=== PATIENT | male | born 1940 | race Caucasian/White ===

== ENCOUNTER 2018-04-03 09:33 | Emergency (ER) | payer MEDICARE, SELFPAY ==
[2018-04-03 09:44] VITALS: BP 109/69; PULSE 64; RESP 16; TEMP 36.5; O2SAT 99
--- NOTE | 2018-04-03 10:01 | ED_ITS ---
HPI - Male Genitourinary General Chief complaint: Urogenital-Male Stated complaint: PAIN IN ABDOMEN Time Seen by Provider: 04/03/18 09:45 Source: patient Mode of arrival: ambulatory Limitations: no limitations History of Present Illness HPI Narrative: Patient is a 77-year-old male who presents with right lower quadrant pain. He says it has been off and on since about 2:00 a.m. this morning. No migration of pain no flank pain or testicle pain. On he does have a history of kidney stones and an appendectomy. He says this does feel similar to previous kidney stones. He did take an Aleve prior to arrival which seems to have helped. Related Data Home Medications Medication Instructions Recorded Confirmed latanoprost [Xalatan] 1 drp OPHTH HS #0 04/19/11 TIMOLOL 0.25% OPHTH - 1 drp OPHTH BID #0 11/15/11 (#TIMOPTIC 0.25% 10 ML) Previous Rx's Medication Instructions Recorded hydrocodone-acetaminophen [[place]] 1 tab PO Q4HP PRN #10 tab 04/29/17 polyethylene glycol 3350 [Miralax] 17 gm PO QDAYP PRN #14 gm 04/29/17 tamsulosin [Flomax] 0.4 mg PO QDAY #10 cap 04/29/17 Allergies Allergy/AdvReac Type Severity Reaction Status Date / Time No Known Allergies Allergy Uncoded 11/16/17 13:08 Review of Systems Review of Systems GENERAL: Denies chills, fatigue, malaise, fever, sweats, travel HEENT: Denies sinus pain, ear pain, sore throat, difficulty swallowing, neck pain RESPIRATORY: Denies dyspnea, cough, wheezing, hemoptysis, sputum. CARDIOVASCULAR: Denies chest pain, palpitations, orthopnea, edema GASTROINTESTINAL: See HPI : Denies dysuria, frequency, incontinence, hematuria, urinary retention, flank pain. MUSCULOSKELETAL: Denies weakness, joint pain, or bony pain SKIN: No rash, no erythema, no pruritus NEUROLOGIC: Denies weakness, dizziness, headache, numbness, change in speech, confusion PSYCHIATRIC: No concerning psychosocial issues. 12 point review of systems is negative except for those stated above and HPI All systems reviewed & are unremarkable except as noted in HPI and below Exam Initial Vital Signs Initial Vital Signs: Vital Signs Temperature 97.7 F 04/03/18 09:44 Pulse Rate 64 04/03/18 09:44 Respiratory Rate 16 04/03/18 09:44 Blood Pressure 109/69 04/03/18 09:44 Pulse Oximetry 99 04/03/18 09:44 GENERAL: Alert elderly male no acute distress HEENT: Head atraumatic,EOMI, pupils reactive CARDIOVASCULAR: Regular rate and rhythm without murmurs, rubs or gallops. RESPIRATORY: Breath sounds equal bilaterally, no wheezes rales or rhonchi. ABDOMEN: Soft, no right lower quadrant tenderness, negative Rizo sign : No CVA tenderness EXTREMITIES: Normal range of motion, no clubbing or edema. Neurovascularly intact NEUROLOGICAL: Alert and oriented x4.Normal gait and speech. Cranial nerves II through XII grossly intact. [Good [id number], good [id number], strength equal bilaterally, no dysarthria or aphasia, sensation in tact to soft touch bilaterally, no visual changes, no facial droop] SKIN: Warm, dry, no laceration, no petechiae, no rashes or lesions. Course Orders Ordered: ED Orders 04/03/18 10:11 CT kidney ureter bladder (KUB) Stat Vital Signs - 8 hr 04/03/18 11:15 Pulse Rate 55 L Respiratory Rate 18 Blood Pressure [Right Arm] 109/66 Pulse Oximetry 96 MDM - Male Genitourinary Lab Data Attestation: I reviewed the patient's lab results. Result diagrams: 04/03/18 09:55 04/03/18 09:55 Lab Results 04/03/18 04/03/18 Range/Units 09:55 09:55 WBC 9.1 (4.5-11.0) X10^3/uL RBC 4.53 (4.5-5.9) X10^6/uL Hgb 14.4 (13.5-17.5) g/dL Hct 42.2 (41-53) % MCV 93.1 (80-100) fL MCH 31.8 (26-34) PG MCHC 34.1 (30-36) % RDW 14.1 (11.6-14.8) % Plt Count 125 L (150-400) X10^3/uL Neut % (Auto) 79.1 H (50-75) % Lymph % (Auto) 11.2 L (25-40) % [place] % (Auto) 6.7 (3-14) % Eos % (Auto) 2.3 (2-4) % Baso % (Auto) 0.7 (0-2) % Neut # (Auto) 7200 H (4327-5344) /uL Sodium 147 H (137-145) mmol/L Potassium 4.0 (3.4-5.1) mmol/L Chloride 109 H (98-107) mmol/L Carbon Dioxide 28 (22-32) mmol/L BUN 17 (9-20) mg/dL Creatinine 0.70 (0.66-1.25) mg/dL Estimated GFR > 60.0 (>60) mL/min BUN/Creatinine Ratio 24.3 H (6-22) Glucose 123 H (80-110) mg/dL Calcium 9.0 (8.4-10.2) mg/dL Total Bilirubin 1.0 (0.2-1.3) mg/dL AST 34 (17-59) IU/L ALT 27 (21-72) IU/L Alkaline Phosphatase 55 (38-126) U/L Total Protein 6.1 L (6.3-8.2) g/dL Albumin 3.7 (3.5-5.0) g/dL Globulin 2.4 (1.7-4.1) g/dL Albumin/Globulin Ratio 1.5 (1.0-2.8) Lipase 22 L (23-300) U/L Imaging Data CT scan - abdomen: Radiologist's impression: PROCEDURE: CT KIDNEY URETER BLADDER (KUB) INDICATIONS: right lower quad pain hx of kidney stone TECHNIQUE: Noncontrast 5 mm thick sections acquired from the diaphragms to the symphysis. 5 mm thick coronal and sagittal reformats were then performed. For radiation dose reduction, the following was used: automated exposure control, adjustment of mA and/or kV according to patient size. COMPARISON: [facility], CT, ABDOMEN/PELVIS WITH CONTRAST, 04/29/2017, 14: 36. [facility], CT, KIDNEY/ URETER/BLADDER, 01/10/2009, 19:30. FINDINGS: Image quality: Excellent. Lung bases: Scattered scarring/atelectasis is present. No definite focal consolidation. Heart is enlarged. 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 Bilateral nephrolithiasis is seen measuring up to 8mm on the left and 1 mm on the right. There are numerous bilateral parapelvic cysts. No definite ureteral dilatation is identified. The distal right ureter is not well-visualized, however there appears to be a new 3 mm nonobstructive distal right ureteral calculus on image 67 series 2. A previously visualized 5 mm left proximal ureter calculus is no longer seen. The bladder appears grossly unremarkable. No bladder calculi seen. No hydronephrosis or perinephric fat stranding. No calcified bladder stones. There are numerous right-sided pelvic phleboliths which appear grossly unchanged . Prostate enlarged. Other solid organs: Liver is normal in size. Presumably attenuation right hepatic cyst measuring 3 cm. Gallbladder surgically absent. Pancreas is normal in contours. Spleen is normal in size. No adrenal nodules. Peritoneum and bowel: Unenhanced bowel loops demonstrate normal wall thickness and caliber. No free fluid or air. Colonic diverticula are incidentally noted. The rectum is filled with stool and otherwise unremarkable. Appendix not well-seen although may be surgically absent. Nodes and vessels: No retroperitoneal or mesenteric adenopathy by size criteria. Aorta and inferior vena cava are normal in caliber. Abdominal wall: No ventral hernias. Pelvis: No free pelvic fluid. No inguinal hernias or adenopathy. Bones: No suspicious bony lesions. Diffuse osteopenia and posterior spinal instrumentation in the lumbar spine. Unchanged appearance of L3 compression fracture. IMPRESSION: Nonobstructing 3 mm distal right ureteral calculus, just above the ureterovesical junction, which has developed since prior study. Interval resolution of the obstructing 5 mm left proximal ureteral calculus since the prior study Multiple nonobstructive bilateral renal calculi as before. Moderate hiatal hernia. Large amount of stool seen within the rectal vault. Please correlate clinically for constipation/fecal impaction. Incidental colonic diverticulosis. Enlarged prostate. Additional chronic incidental findings as above. Dictated by: Javad Hinojosa M.D. on 04/03/2018 at 10:25 Approved by: Javad Hinojosa M.D. on 04/03/2018 at 10:37 Discharge Plan Departure Patient Disposition: Home Clinical Impression: Kidney stone on right side Discharge Date/Time: 04/03/18 11:28 Interventions: ED Discharge Assessment Last Done: 04/03/18 11:27 Instructions: DI for Kidney Stones Activity Restrictions/Additional Instructions: *You have been diagnosed with kidney stone *What to do: Increase fluid intake, recommend urology evaluation if you have not already had one *Continue to take medications as directed -Flomax once daily-as prescribed Aleve 1-2 tablets every 6-8 hours if needed for pain -Tylenol 500 mg every 4-6 hours if needed for pain *Follow up with your primary care provider in 2-3 days *Return to ER if you should have increasing pain, fever or any new, worsening or concerning symptoms Prescriptions: No Action latanoprost [Xalatan] 0.005 % drops 1 drp OPHTH HS Qty: 0 RF: 0 TIMOLOL 0.25% OPHTH - (#TIMOPTIC 0.25% 10 ML) 1 drp OPHTH BID Qty: 0 RF: 0 polyethylene glycol 3350 [Miralax] 17 GM powder in packet 17 gm PO QDAYP PRNQty: 14 RF: 0 hydrocodone-acetaminophen [[place]] 5 MG/325 MG tablet 1 tab PO Q4HP PRNQty: 10 RF: 0 tamsulosin [Flomax] 0.4 MG capsule,extended release 24hr 0.4 mg PO QDAY Qty: 10 RF: 0 Referrals: Bradley Crowe MD [Primary Care Provider] -
--- NOTE | 2018-04-03 10:11 | DI.CT.S_ITS ---
PROCEDURE: CT KIDNEY URETER BLADDER (KUB) INDICATIONS: right lower quad pain hx of kidney stone TECHNIQUE: Noncontrast 5 mm thick sections acquired from the diaphragms to the symphysis. 5 mm thick coronal and sagittal reformats were then performed. For radiation dose reduction, the following was used: automated exposure control, adjustment of mA and/or kV according to patient size. COMPARISON: [facility], CT, ABDOMEN/PELVIS WITH CONTRAST, 04/29/2017, 14:36. [facility], CT, KIDNEY/ URETER/BLADDER, 01/10/2009, 19:30. FINDINGS: Image quality: Excellent. Lung bases: Scattered scarring/atelectasis is present. No definite focal consolidation. Heart is enlarged. 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 Bilateral nephrolithiasis is seen measuring up to 8mm on the left and 1 mm on the right. There are numerous bilateral parapelvic cysts. No definite ureteral dilatation is identified. The distal right ureter is not well-visualized, however there appears to be a new 3 mm nonobstructive distal right ureteral calculus on image 67 series 2. A previously visualized 5 mm left proximal ureter calculus is no longer seen. The bladder appears grossly unremarkable. No bladder calculi seen. No hydronephrosis or perinephric fat stranding. No calcified bladder stones. There are numerous right-sided pelvic phleboliths which appear grossly unchanged . Prostate enlarged. Other solid organs: Liver is normal in size. Presumably attenuation right hepatic cyst measuring 3 cm. Gallbladder surgically absent. Pancreas is normal in contours. Spleen is normal in size. No adrenal nodules. Peritoneum and bowel: Unenhanced bowel loops demonstrate normal wall thickness and caliber. No free fluid or air. Colonic diverticula are incidentally noted. The rectum is filled with stool and otherwise unremarkable. Appendix not well-seen although may be surgically absent. Nodes and vessels: No retroperitoneal or mesenteric adenopathy by size criteria. Aorta and inferior vena cava are normal in caliber. Abdominal wall: No ventral hernias. Pelvis: No free pelvic fluid. No inguinal hernias or adenopathy. Bones: No suspicious bony lesions. Diffuse osteopenia and posterior spinal instrumentation in the lumbar spine. Unchanged appearance of L3 compression fracture. IMPRESSION: Nonobstructing 3 mm distal right ureteral calculus, just above the ureterovesical junction, which has developed since prior study. Interval resolution of the obstructing 5 mm left proximal ureteral calculus since the prior study Multiple nonobstructive bilateral renal calculi as before. Moderate hiatal hernia. Large amount of stool seen within the rectal vault. Please correlate clinically for constipation/fecal impaction. Incidental colonic diverticulosis. Enlarged prostate. Additional chronic incidental findings as above. Dictated by: Javad Hinojosa M.D. on 04/03/2018 at 10:25 Approved by: Javad Hinojosa M.D. on 04/03/2018 at 10:37
[2018-04-03 10:13] LABS: Add Manual Diff / Slide Review NO; Basophils Percent Auto 0.7 % (0-2); Eosinophils Percent Auto 2.3 % (2-4); Hematocrit 42.2 % (41-53); Hemoglobin 14.4 g/dL (13.5-17.5); Lymphocytes Percent Auto 11.2 % (25-40); Mean Corpuscular HGB Conc 34.1 % (30-36); Mean Corpuscular Hemoglobin 31.8 PG (26-34); Mean Corpuscular Volume 93.1 fL (80-100); Monocytes Percent Auto 6.7 % (3-14); Neutrophils Absolute Auto 7200 /uL (3000-5900); Neutrophils Percent Auto 79.1 % (50-75); Platelet Count 125 X10^3/uL (150-400); Red Blood Cell Count 4.53 X10^6/uL (4.5-5.9); Red Cell Distribution Width 14.1 % (11.6-14.8); White Blood Cell Count 9.1 X10^3/uL (4.5-11.0)
--- NOTE | 2018-04-03 10:14 | PC.NURSE ---
Pt w/ h/o left kidney stones here for right lower quadrant / mid abd pain. Denies nausea / vomiting. States that pain is worse when going over bumps in car or walking. Denies recent trauma. Last bm yesterday, normal for patient. Refused offer of pain medication at this time.
[2018-04-03 11:03] LABS: Alanine Aminotransferase 27 IU/L (21-72); Albumin 3.7 g/dL (3.5-5.0); Albumin Globulin Ratio 1.5 (1.0-2.8); Alkaline Phosphatase 55 U/L (38-126); Aspartate Aminotransferase 34 IU/L (17-59); BUN Creatinine Ratio 24.3 (6-22); Blood Urea Nitrogen 17 mg/dL (9-20); Carbon Dioxide 28 mmol/L (22-32); Chloride 109 mmol/L (98-107); Estimated Glomerular Filt Rate > 60.0 mL/min (>60); Globulin 2.4 g/dL (1.7-4.1); Glucose 123 mg/dL (80-110); HEMOLYSIS 32 (0-50); Lipase 22 U/L (23-300); Sodium 147 mmol/L (137-145); Total Protein 6.1 g/dL (6.3-8.2)
[2018-04-03 11:15] VITALS: BP 109/66; PULSE 55; RESP 18; O2SAT 96
== END 2018-04-03 11:28 | disposition home or self-care (01) ==
PROVIDERS: Emergency Provider Emergency Medicine; Family Provider Family Medicine; PCP Family Medicine
DX: N20.0 Calculus of kidney (principal)
CPT/HCPCS: 74176; 80053; 81003; 83690; 85025; 99283; 99284

== ENCOUNTER 2018-12-09 14:36 | Emergency (ER) | payer MEDICARE, SELFPAY ==
[2018-12-09 14:50] VITALS: BP 146/75; PULSE 70; RESP 16; TEMP 36.6; O2SAT 99
--- NOTE | 2018-12-09 15:03 | ED.DIZZY ---
HPI - Dizziness General Chief Complaint: Dizziness Stated Complaint: states nausea, dizzy, difficulty walking, weak x1d Time Seen by Provider: 12/09/18 14:48 Source: patient and family Mode of arrival: ambulatory Limitations: no limitations History of Present Illness HPI Narrative: Patient is an 78-year-old male who presents with vague complaints. He has dementia and is an extremely poor historian. His states that she was in a different room making breakfast she heard him on unclear if he fell or not no sign of trauma. He may have been extremely dizzy but is overall feeling better now. He does not have any chest pain difficult to discern if he had chest pain previously. He talks about a procedure to his right eye were a needle was injected his states that that never happened. MD complaint: dizziness Related Data Home Medications Medication Instructions Recorded Confirmed latanoprost [Xalatan] 1 drp OPHTH HS #0 04/19/11 04/08/18 TIMOLOL 0.25% OPHTH - 1 drp OPHTH BID #0 11/15/11 04/08/18 (#TIMOPTIC 0.25% 10 ML) brimonidine 0.15 % eye drops EYE-BOTH ml 04/08/18 04/08/18 lisinopril 10 mg tablet 10 mg PO DAILY 04/08/18 04/08/18 Previous Rx's Medication Instructions Recorded polyethylene glycol 3350 [Miralax] 17 gm PO QDAYP PRN #14 gm 04/29/17 tamsulosin [Flomax] 0.4 mg PO QDAY #10 cap 04/29/17 Allergies Allergy/AdvReac Type Severity Reaction Status Date / Time No Known Drug Allergies Allergy Verified 12/09/18 14:50 Review of Systems Review of Systems ROS Unobtainable: All systems reviewed & are unremarkable except as noted in HPI and below Constitutional Denies chills, Denies fever(s), Denies lethargy and Denies weakness Eyes Denies change in vision, Denies eye discharge, Denies irritation and Denies loss of vision ENT Ears, Nose, Mouth, and Throat: Denies change in voice, Denies neck pain and Denies sore throat Cardiovascular Denies chest pain, Denies irregular heart rhythm, Denies lightheadedness, Denies palpitations, Denies dyspnea, Denies dyspnea on exertion and Denies orthopnea Respiratory Denies cough, Denies dyspnea, Denies dyspnea on exertion and Denies wheezing Gastrointestinal Gastrointestinal: Denies abdominal pain, Denies change in bowel habits, Denies diarrhea, Denies nausea and Denies vomiting Genitourinary Denies hematuria, Denies flank pain, Denies urinary incontinence and Denies urinary urgency Musculoskeletal Denies neck pain Integumentary/Breasts Denies pruritus, Denies erythema, Denies rash and Denies wounds Neurologic Denies loss of vision and Denies weakness Endocrine Denies palpitations Allergic/Immunologic Denies wheezing [facility] Medical History Dementia (Acute) Social History Smoking Status: Never smoker alcohol intake: never Social History Smoking Status: Never smoker alcohol intake: never Exam Initial Vital Signs Initial Vital Signs: Vital Signs Temperature 97.9 F 12/09/18 14:50 Pulse Rate 70 12/09/18 14:50 Respiratory Rate 16 12/09/18 14:50 Blood Pressure 146/75 H 12/09/18 14:50 Pulse Oximetry 99 12/09/18 14:50 GENERAL: Pleasantly confused elderly male no acute distress HEENT: Head atraumatic,EOMI, pupils reactive, face symmetric, CARDIOVASCULAR: Regular rate and rhythm without murmurs, rubs or gallops. RESPIRATORY: Breath sounds equal bilaterally, no wheezes rales or rhonchi. ABDOMEN: Soft, nontender. Normoactive bowel sounds all 4 quadrants. No guarding or rebound. EXTREMITIES: Normal range of motion, no clubbing or edema. Neurovascularly intact NEUROLOGICAL: Alert and oriented x4.Normal gait and speech. Cranial nerves II through XII grossly intact. he is able to follow commands radiology transcriptionist strength is equal bilaterally. Good [id number]. Does not quite understand heel to [place]. No aphasia and no dysarthria SKIN: Warm, dry, no laceration, no petechiae, no rashes or lesions. Course Orders Ordered: ED Orders 12/09/18 14:50 EKG-12 Lead Stat 12/09/18 15:04 CT head/brain wo con Stat 12/09/18 15:10 Complete Blood Count AUTO DIFF Stat Comprehensive Metabolic Panel Stat Troponin & CK Cardiac Panel Stat 12/09/18 15:16 XR pelvis 1-2V Stat 12/09/18 15:37 XR chest 2V Stat Discontinued Medications Aspirin (Aspirin Chew) 324 mg PO NOW ONE Stop: 12/09/18 17:06 Last Admin: 12/09/18 17:06 Dose: 324 mg Sodium Chloride (Normal Saline 0.9%) 1,000 mls @ 1,000 mls/hr IV CONT OKSANA Last Infusion: 12/09/18 17:08 Dose: 0 mls/hr Admin: 12/09/18 16:07 Dose: 1,000 mls/hr Vital Signs - 8 hr 12/09/18 14:50 12/09/18 16:02 12/09/18 16:30 Temperature 97.9 F Pulse Rate 70 56 L 56 L Respiratory Rate 16 17 15 Blood Pressure 146/75 H Blood Pressure [Left Arm] 138/67 135/71 Pulse Oximetry 99 96 99 MDM - Dizziness Lab Data Attestation: I reviewed the patient's lab results. Result diagrams: 12/09/18 15:10 12/09/18 15:10 Lab Results 12/09/18 12/09/18 Range/Units 15:10 15:10 WBC 6.8 (4.5-11.0) X10^3/uL RBC 4.52 (4.5-5.9) X10^6/uL Hgb 14.6 (13.5-17.5) g/dL Hct 43.6 (41-53) % MCV 96.6 (80-100) fL MCH 32.3 (26-34) PG MCHC 33.4 (30-36) % RDW 13.9 (11.6-14.8) % Plt Count 134 L (150-400) X10^3/uL Neut % (Auto) 61.9 (50-75) % Lymph % (Auto) 26.0 (25-40) % [place] % (Auto) 9.0 (3-14) % Eos % (Auto) 2.5 (2-4) % Baso % (Auto) 0.6 (0-2) % Neut # (Auto) 4200 (3026-2718) /uL Lymph # (Auto) 1800 (9917-7286) /uL [place] # (Auto) 600 (0-900) /uL Eos # (Auto) 200 (0-450) /uL Baso # (Auto) 0 (0-100) /uL Sodium 142 (137-145) mmol/L Potassium 3.8 (3.4-5.1) mmol/L Chloride 106 (98-107) mmol/L Carbon Dioxide 27 (22-32) mmol/L BUN 20 (9-20) mg/dL Creatinine 0.70 (0.66-1.25) mg/dL Estimated GFR > 60.0 (>60) mL/min BUN/Creatinine Ratio 28.6 H (6-22) Glucose 85 (80-110) mg/dL Calcium 9.0 (8.4-10.2) mg/dL Total Bilirubin 1.2 (0.2-1.3) mg/dL AST 29 (17-59) IU/L ALT 37 (21-72) IU/L Alkaline Phosphatase 64 (38-126) U/L Total Creatine Kinase 110 (55-170) U/L CK-MB (CK-2) 3.49 H (<2.37) ng/mL CK-MB (CK-2) Rel Index 3.2 (1.5-5.0) % Troponin I < 0.012 (0.01-0.034) ng/mL Total Protein 6.7 (6.3-8.2) g/dL Albumin 4.1 (3.5-5.0) g/dL Globulin 2.6 (1.7-4.1) g/dL Albumin/Globulin Ratio 1.6 (1.0-2.8) Imaging Data CT scan - head: Radiologist's impression: PROCEDURE: CT HEAD/BRAIN WO CON INDICATIONS: dizzy possible fall TECHNIQUE: Noncontrast 4.5 mm thick angled axial sections acquired from the foramen magnum to the vertex, with coronal and sagittal reformats. For radiation dose reduction, the following was used: automated exposure control, adjustment of mA and/or kV according to patient size. COMPARISON: [facility], CT, CT KIDNEY URETER BLADDER (KUB), 04/03/2018, 10:03. [facility], CT, ABDOMEN/PELVIS WITH CONTRAST, 04/29/2017, 14:36. [facility], CT, ABDOMEN/PELVIS WITH CONTRAST, 01/04/2013, 15:43. [facility], CT, ABDOMEN/PELVIS WITH CONTRAST, 11/14/2011, 22:17. FINDINGS: Image quality: Excellent. CSF spaces: Basal cisterns are patent. No extra-axial fluid collections. Ventricles are normal in size and shape. Brain: No midline shift. No intracranial masses or hemorrhage. Ellis-white matter interface is normal. Moderate diffuse cerebral volume loss. Moderate subcortical and periventricular white matter hypoattenuation compatible with chronic microvascular ischemic change. Punctate right basal ganglia calcification noted. Subcentimeter hypoattenuating foci compatible with age-indeterminate lacunar infarcts within the left basal ganglia, posterior to the head of the right caudate nucleus, and within the posterior right gar radiata are noted, favored chronic. Calcified intracranial vascular plaque noted. Skull and face: Calvarium and visualized facial bones are intact, without suspicious lesions. Sinuses: Visualized sinuses and mastoids are clear. IMPRESSION: 1. No acute intracranial hemorrhage or large territorial infarct. 2. Small subcentimeter age-indeterminate lacunar infarcts of the left basal ganglia, posterior right gar radiata, and posterior to the head of the right caudate nucleus, which are favored to be chronic. Dictated by: Joe Jaime M.D. on 12/09/2018 at 15:29 pelvis x-ray: Radiologist's impression: PROCEDURE: XR PELVIS 1-2V INDICATIONS: fall TECHNIQUE: One view(s) of the pelvis acquired. COMPARISON: None. FINDINGS: Bones: Partially imaged lumbar spinal fusion hardware. Subtle cortical irregularity of the right acetabulum/right superior pubic ramus noted. Soft tissues: Pelvic phleboliths noted. Pelvic and bilateral thigh vascular calcifications are present. IMPRESSION: Subtle cortical irregularity of the right acetabulum/right superior pubic ramus may represent a nondisplaced fracture versus positioning artifact. Recommend dedicated right hip radiographs if the patient reports right hip pain or if there is continued clinical concern. Dictated by: Joe Jaime M.D. on 12/09/2018 at 17:35 Chest x-ray: Radiologist's impression: PROCEDURE: XR CHEST 2V INDICATIONS: left pain TECHNIQUE: 2 views of the chest were acquired. COMPARISON: None. FINDINGS: Surgical changes and devices: None. Lungs and pleura: Lungs are clear. No pleural effusions or pneumothorax. Prominent left nipple silhouette. Mediastinum: Mediastinal contours are normal. Heart size is normal. Probable hiatal hernia. Bones and chest wall: Partially imaged lumbar spinal fusion hardware noted. IMPRESSION: No acute cardiopulmonary disease. Probable hiatal hernia. Dictated by: Joe Jaime M.D. on 12/09/2018 at 17:33 Approved by: Joe Jaime M.D. on 12/09/2018 at 17: ECG Data Attestation: I personally reviewed and interpreted this ECG as follows: Prior ECG tracings: not available for review Interpretation: Normal sinus rhythm or rate 58 right bundle-branch block noted. no priors to compare no significant ST changes MDM Narrative Medical decision making narrative: The patient overall seems back to baseline per . She states that he really just stood in the bathroom and her after her with both hands and was shaking. She did know what to do. Still story is very unclear exactly what happened. At this time patient does not seem to have any signs or symptoms of stroke or acute coronary syndrome. He is wanting to go home and is anxious to do so. I discussed very clearly with signs and symptoms of stroke and that she needs to return immediately to the emergency department if they present. They [place] on [address] has there is no EMS. She says that they do have airlift insurance. Discharge Plan Departure Patient Disposition: Home Clinical Impression: Vertigo Discharge Date/Time: 12/09/18 17:10 Interventions: ED Discharge Assessment Last Done: 12/09/18 17:07 Instructions: DI for Vertigo Activity Restrictions/Additional Instructions: *You have been diagnosed with vertigo *What to do: At this time blood work and CT scan are reassuring no sign of broken bones *Continue to take medications as directed Aspirin 81 mg daily *Follow up with your primary care provider in 2-3 days *Return to ER if you should have facial drooping, difficulty speaking, not moving arm or leg or any new, worsening or concerning symptoms Prescriptions: No Action brimonidine 0.15 % drops EYE-BOTH RF: 0 lisinopril 10 mg tablet 10 mg PO DAILY RF: 0 latanoprost [Xalatan] 0.005 % drops 1 drp OPHTH HS Qty: 0 RF: 0 TIMOLOL 0.25% OPHTH - (#TIMOPTIC 0.25% 10 ML) 1 drp OPHTH BID Qty: 0 RF: 0 polyethylene glycol 3350 [Miralax] 17 GM powder in packet 17 gm PO QDAYP PRNQty: 14 RF: 0 tamsulosin [Flomax] 0.4 MG capsule,extended release 24hr 0.4 mg PO QDAY Qty: 10 RF: 0 Referrals: Bradley Crowe MD [Primary Care Provider] -
--- NOTE | 2018-12-09 15:07 | ED_ITS ---
HPI - Dizziness General Chief Complaint: Dizziness Stated Complaint: states nausea, dizzy, difficulty walking, weak x1d Time Seen by Provider: 12/09/18 14:48 Source: patient and family Mode of arrival: ambulatory Limitations: no limitations History of Present Illness HPI Narrative: Patient is an 78-year-old male who presents with vague complaints. He has dementia and is an extremely poor historian. His stat es that she was in a different room making breakfast she heard him on unclear if he fell or not no sign of trauma. He may have been extremely dizzy but is overall feeling better now. He does not have any chest pain difficult to discern if he had chest pain previously. He talks about a procedure to his right eye were a needle was injected his states that that never happened. MD complaint: dizziness Related Data Home Medications Medication Instructions Recorded Confirmed latanoprost [Xalatan] 1 drp OPHTH HS #0 04/19/11 04/08/18 TIMOLOL 0.25% OPHTH - 1 drp OPHTH BID #0 11/15/11 04/08/18 (#TIMOPTIC 0.25% 10 ML) brimonidine 0.15 % eye drops EYE-BOTH ml 04/08/18 04/08/18 lisinopril 10 mg tablet 10 mg PO DAILY 04/08/18 04/08/18 Previous Rx's Medication Instructions Recorded polyethylene glycol 3350 [Miralax] 17 gm PO QDAYP PRN #14 gm 04/29/17 tamsulosin [Flomax] 0.4 mg PO QDAY #10 cap 04/29/17 Allergies Allergy/AdvReac Type Severity Reaction Status Date / Time No Known Drug Allergies Allergy Verified 12/09/18 14:50 Review of Systems Review of Systems ROS Unobtainable: All systems reviewed & are unremarkable except as noted in HPI and below Constitutional Denies chills, Denies fever(s), Denies lethargy and Denies weakness Eyes Denies change in vision, Denies eye discharge, Denies irritation and Denies loss of vision ENT Ears, Nose, Mouth, and Throat: Denies change in voice, Denies neck pain and Denies sore throat Cardiovascular Denies chest pain, Denies irregular heart rhythm, Denies lightheadedness, Denies palpitations, Denies dyspnea, Denies dyspnea on exertion and Denies orthopnea Respiratory Denies cough, Denies dyspnea, Denies dyspnea on exertion and Denies wheezing Gastrointestinal Gastrointestinal: Denies abdominal pain, Denies change in bowel habits, Denies diarrhea, Denies nausea and Denies vomiting Genitourinary Denies hematuria, Denies flank pain, Denies urinary incontinence and Denies urinary urgency Musculoskeletal Denies neck pain Integumentary/Breasts Denies pruritus, Denies erythema, Denies rash and Denies wounds Neurologic Denies loss of vision and Denies weakness Endocrine Denies palpitations Allergic/Immunologic Denies wheezing [facility] Medical History Dementia (Acute) Social History Smoking Status: Never smoker alcohol intake: never Social History Smoking Status: Never smoker alcohol intake: never Exam Initial Vital Signs Initial Vital Signs: Vital Signs Temperature 97.9 F 12/09/18 14:50 Pulse Rate 70 12/09/18 14:50 Respiratory Rate 16 12/09/18 14:50 Blood Pressure 146/75 H 12/09/18 14:50 Pulse Oximetry 99 12/09/18 14:50 GENERAL: Pleasantly confused elderly male no acute distress HEENT: Head atraumatic,EOMI, pupils reactive, face symmetric, CARDIOVASCULAR: Regular rate and rhythm without murmurs, rubs or gallops. RESPIRATORY: Breath sounds equal bilaterally, no wheezes rales or rhonchi. ABDOMEN: Soft, nontender. Normoactive bowel sounds all 4 quadrants. No guarding or rebound. EXTREMITIES: Normal range of motion, no clubbing or edema. Neurovascularly intact NEUROLOGICAL: Alert and oriented x4.Normal gait and speech. Cranial nerves II through XII grossly intact. he is able to follow commands clinical resource nurse strength is equal bilaterally. Good [id number]. Does not quite understand heel to [place]. No aphasia and no dysarthria SKIN: Warm, dry, no laceration, no petechiae, no rashes or lesions. Course Orders Ordered: ED Orders 12/09/18 14:50 EKG-12 Lead Stat 12/09/18 15:04 CT head/brain wo con Stat 12/09/18 15:10 Complete Blood Count AUTO DIFF Stat Comprehensive Metabolic Panel Stat Troponin & CK Cardiac Panel Stat 12/09/18 15:16 XR pelvis 1-2V Stat 12/09/18 15:37 XR chest 2V Stat Discontinued Medications Aspirin (Aspirin Chew) 324 mg PO NOW ONE Stop: 12/09/18 17:06 Last Admin: 12/09/18 17:06 Dose: 324 mg Sodium Chloride (Normal Saline 0.9%) 1,000 mls @ 1,000 mls/hr IV CONT OKSANA Last Infusion: 12/09/18 17:08 Dose: 0 mls/hr Admin: 12/09/18 16:07 Dose: 1,000 mls/hr Vital Signs - 8 hr 12/09/18 14:50 12/09/18 16:02 12/09/18 16:30 Temperature 97.9 F Pulse Rate 70 56 L 56 L Respiratory Rate 16 17 15 Blood Pressure 146/75 H Blood Pressure [Left Arm] 138/67 135/71 Pulse Oximetry 99 96 99 MDM - Dizziness Lab Data Attestation: I reviewed the patient's lab results. Result diagrams: 12/09/18 15:10 12/09/18 15:10 Lab Results 12/09/18 12/09/18 Range/Units 15:10 15:10 WBC 6.8 (4.5-11.0) X10^3/uL RBC 4.52 (4.5-5.9) X10^6/uL Hgb 14.6 (13.5-17.5) g/dL Hct 43.6 (41-53) % MCV 96.6 (80-100) fL MCH 32.3 (26-34) PG MCHC 33.4 (30-36) % RDW 13.9 (11.6-14.8) % Plt Count 134 L (150-400) X10^3/uL Neut % (Auto) 61.9 (50-75) % Lymph % (Auto) 26.0 (25-40) % Ashley % (Auto) 9.0 (3-14) % Eos % (Auto) 2.5 (2-4) % Baso % (Auto) 0.6 (0-2) % Neut # (Auto) 4200 (8284-4482) /uL Lymph # (Auto) 1800 (1930-5970) /uL Ashley # (Auto) 600 (0-900) /uL Eos # (Auto) 200 (0-450) /uL Baso # (Auto) 0 (0-100) /uL Sodium 142 (137-145) mmol/L Potassium 3.8 (3.4-5.1) mmol/L Chloride 106 (98-107) mmol/L Carbon Dioxide 27 (22-32) mmol/L BUN 20 (9-20) mg/dL Creatinine 0.70 (0.66-1.25) mg/dL Estimated GFR > 60.0 (>60) mL/min BUN/Creatinine Ratio 28.6 H (6-22) Glucose 85 (80-110) mg/dL Calcium 9.0 (8.4-10.2) mg/dL Total Bilirubin 1.2 (0.2-1.3) mg/dL AST 29 (17-59) IU/L ALT 37 (21-72) IU/L Alkaline Phosphatase 64 (38-126) U/L Total Creatine Kinase 110 (55-170) U/L CK-MB (CK-2) 3.49 H (<2.37) ng/mL CK-MB (CK-2) Rel Index 3.2 (1.5-5.0) % Troponin I < 0.012 (0.01-0.034) ng/mL Total Protein 6.7 (6.3-8.2) g/dL Albumin 4.1 (3.5-5.0) g/dL Globulin 2.6 (1.7-4.1) g/dL Albumin/Globulin Ratio 1.6 (1.0-2.8) Imaging Data CT scan - head: Radiologist's impression: PROCEDURE: CT HEAD/BRAIN WO CON INDICATIONS: dizzy possible fall TECHNIQUE: Noncontrast 4.5 mm thick angled axial sections acquired from the foramen magnum to the vertex, with coronal and sagittal reformats. For radiation dose reduction, the following was used: automated exposure control, adjustment of mA and/or kV according to patient size. COMPARISON: [facility], CT, CT KIDNEY URETER BLADDER (KUB), 04/03/2018, 10:03. [facility], CT, ABDOMEN/PELVIS WITH CONTRAST, 04/29/2017, 14:36. [facility], CT, ABDOMEN/PELVIS WITH CONTRAST, 01/04/2013, 15:43. [facility], CT, ABDO MEN/PELVIS WITH CONTRAST, 11/14/2011, 22:17. FINDINGS: Image quality: Excellent. CSF spaces: Basal cisterns are patent. No extra-axial fluid collections. Ventricles are normal in size and shape. Brain: No midline shift. No intracranial masses or hemorrhage. Ellis-white matter interface is normal. Moderate diffuse cerebral volume loss. Moderate subcortical and periventricular white matter hypoattenuation compatible with chronic microvascular ischemic change. Punctate right basal ganglia calcification noted. Subcentimeter hypoattenuating foci compatible with age-indeterminate lacunar infarcts within the left basal ganglia, posterior to the head of the right caudate nucleus, and within the posterior right gar radiata are noted, favored chronic. Calcified intracran ial vascular plaque noted. Skull and face: Calvarium and visualized facial bones are intact, without suspicious lesions. Sinuses: Visualized sinuses and mastoids are clear. IMPRESSION: 1. No acute intracranial hemorrhage or large territorial infarct. 2. Small subcentimeter age-indeterminate lacunar infarcts of the left basal ganglia, posterior right gar radiata, and posterior to the head of the right caudate nucleus, which are favored to be chronic. Dictated by: Joe Jaime M.D. on 12/09/2018 at 15:29 pelvis x-ray: Radiologist's impression: PROCEDURE: XR PELVIS 1-2V INDICATIONS: fall TECHNIQUE: One view(s) of the pelvis acquired. COMPARISON: None. FINDINGS: Bones: Partially imaged lumbar spinal fusion hardware. Subtle cortical irregularity of the right acetabulum/right superior pubic ramus noted. Soft tissues: Pelvic phleboliths noted. Pelvic and bilateral thigh vascular calcifications are present. IMPRESSION: Subtle cortical irregularity of the right acetabulum/right superior pubic ramus may represent a nondisplaced fracture versus positioning artifact. Recom mend dedicated right hip radiographs if the patient reports right hip pain or if there is continued clinical concern. Dictated by: Joe Jaime M.D. on 12/09/2018 at 17:35 Chest x-ray: Radiologist's impression: PROCEDURE: XR CHEST 2V INDICATIONS: left pain TECHNIQUE: 2 views of the chest were acquired. COMPARISON: None. FINDINGS: Surgical changes and devices: None. Lungs and pleura: Lungs are clear. No pleural effusions or pneumothorax. Prominent left nipple silhouette. Mediastinum: Mediastinal contours are normal. Heart size is normal. Probable hiatal hernia. Bones and chest wall: Partially imaged lumbar spinal fusion hardware noted. IMPRESSION: No acute cardiopulmonary disease. Probable hiatal hernia. Dictated by: Joe Jaime M.D. on 12/09/2018 at 17:33 Approved by: Joe Jaime M.D. on 12/09/2018 at 17: ECG Data Attestation: I personally reviewed and interpreted this ECG as follows: Prior ECG tracings: not available for review Interpretation: Normal sinus rhythm or rate 58 right bundle-branch block noted. no priors to compare no significant ST changes MDM Narrative Medical decision making narrative: The patient overall seems back to baseline per . She states that he really just stood in the bathroom and her after her with both hands and was shaking. She did know what to do. Still story is very unclear exactly what happened. At this time patient does not seem to have any signs or symptoms of stroke or acute coronary syndrome. He is wanting to go home and is anxious to do so. I discussed very clearly with signs and symptoms of stroke and that she needs to return immediately to the emergency department if they present. They [address] on [address] has there is no EMS. She says that they do have airlift insurance. Discharge Plan Departure Patient Disposition: Home Clinical Impression: Vertigo Discharge Date/Time: 12/09/18 17:10 Interventions: ED Discharge Assessment Last Done: 12/09/18 17:07 Instructions: DI for Vertigo Activity Restrictions/Additional Instructions: *You have been diagnosed with vertigo *What to do: At this time blood work and CT scan are reassuring no sign of broken bones *Continue to take medications as directed Aspirin 81 mg daily *Follow up with your primary care provider in 2-3 days *Return to ER if you should have facial drooping, difficulty speaking, not moving arm or leg or any new, worsening or concerning symptoms Prescriptions: No Action brimonidine 0.15 % drops EYE-BOTH RF: 0 lisinopril 10 mg tablet 10 mg PO DAILY RF: 0 latanoprost [Xalatan] 0.005 % drops 1 drp OPHTH HS Qty: 0 RF: 0 TIMOLOL 0.25% OPHTH - (#TIMOPTIC 0.25% 10 ML) 1 drp OPHTH BID Qty: 0 RF: 0 polyethylene glycol 3350 [Miralax] 17 GM powder in packet 17 gm PO QDAYP PRNQty: 14 RF: 0 tamsulosin [Flomax] 0.4 MG capsule,extended release 24hr 0.4 mg PO QDAY Qty: 10 RF: 0 Referrals: Bradley Crowe MD [Primary Care Provider] -
--- NOTE | 2018-12-09 15:16 | DI.RAD.S_ITS ---
PROCEDURE: XR PELVIS 1-2V INDICATIONS: fall TECHNIQUE: One view(s) of the pelvis acquired. COMPARISON: None. FINDINGS: Bones: Partially imaged lumbar spinal fusion hardware. Subtle cortical irregularity of the right acetabulum/right superior pubic ramus noted. Soft tissues: Pelvic phleboliths noted. Pelvic and bilateral thigh vascular calcifications are present. IMPRESSION: Subtle cortical irregularity of the right acetabulum/right superior pubic ramus may represent a nondisplaced fracture versus positioning artifact. Recommend dedicated right hip radiographs if the patient reports right hip pain or if there is continued clinical concern. Dictated by: Joe Jaime M.D. on 12/09/2018 at 17:35 Approved by: Joe Jaime M.D. on 12/09/2018 at 17:38
[2018-12-09 15:24] LABS: Add Manual Diff / Slide Review NO; Basophils Absolute Auto 0 /uL (0-100); Basophils Percent Auto 0.6 % (0-2); Eosinophils Absolute Auto 200 /uL (0-450); Eosinophils Percent Auto 2.5 % (2-4); Hematocrit 43.6 % (41-53); Hemoglobin 14.6 g/dL (13.5-17.5); Lymphocytes Absolute Auto 1800 /uL (1100-4500); Mean Corpuscular HGB Conc 33.4 % (30-36); Mean Corpuscular Hemoglobin 32.3 PG (26-34); Mean Corpuscular Volume 96.6 fL (80-100); Monocytes Absolute Auto 600 /uL (0-900); Neutrophils Absolute Auto 4200 /uL (1500-7000); Neutrophils Percent Auto 61.9 % (50-75); Platelet Count 134 X10^3/uL (150-400); Red Blood Cell Count 4.52 X10^6/uL (4.5-5.9); Red Cell Distribution Width 13.9 % (11.6-14.8); White Blood Cell Count 6.8 X10^3/uL (4.5-11.0)
[2018-12-09 15:29] LABS: Alanine Aminotransferase 37 IU/L (21-72); Albumin 4.1 g/dL (3.5-5.0); Albumin Globulin Ratio 1.6 (1.0-2.8); Alkaline Phosphatase 64 U/L (38-126); Aspartate Aminotransferase 29 IU/L (17-59); BUN Creatinine Ratio 28.6 (6-22); Bilirubin Total 1.2 mg/dL (0.2-1.3); Blood Urea Nitrogen 20 mg/dL (9-20); Carbon Dioxide 27 mmol/L (22-32); Chloride 106 mmol/L (98-107); Creatine Kinase 110 U/L (55-170); Estimated Glomerular Filt Rate > 60.0 mL/min (>60); Globulin 2.6 g/dL (1.7-4.1); Glucose 85 mg/dL (80-110); HEMOLYSIS < 15 (0-50); Potassium 3.8 mmol/L (3.4-5.1); Sodium 142 mmol/L (137-145); Total Protein 6.7 g/dL (6.3-8.2)
--- NOTE | 2018-12-09 15:37 | DI.RAD.S_ITS ---
PROCEDURE: XR CHEST 2V INDICATIONS: left pain TECHNIQUE: 2 views of the chest were acquired. COMPARISON: None. FINDINGS: Surgical changes and devices: None. Lungs and pleura: Lungs are clear. No pleural effusions or pneumothorax. Prominent left nipple silhouette. Mediastinum: Mediastinal contours are normal. Heart size is normal. Probable hiatal hernia. Bones and chest wall: Partially imaged lumbar spinal fusion hardware noted. IMPRESSION: No acute cardiopulmonary disease. Probable hiatal hernia. Dictated by: Joe Jaime M.D. on 12/09/2018 at 17:33 Approved by: Joe Jaime M.D. on 12/09/2018 at 17:35
[2018-12-09 15:40] LABS: Troponin I < 0.012 ng/mL (0.01-0.034)
[2018-12-09 15:44] LABS: CKMB % Relative Index 3.2 % (1.5-5.0); Creatine Kinase MB 3.49 ng/mL (<2.37)
[2018-12-09 16:02] VITALS: BP 138/67; PULSE 56; RESP 17; O2SAT 96
[2018-12-09] MEDS: SODIUM CHLORIDE 0.9% 1,000 ML 1000 ML IV (16:07)
[2018-12-09 16:30] VITALS: BP 135/71; PULSE 56; RESP 15; O2SAT 99
[2018-12-09] MEDS: ASPIRIN 81 MG TAB 324 MG PO (17:06)
== END 2018-12-09 17:10 | disposition home or self-care (01) ==
PROVIDERS: Emergency Provider Emergency Medicine; PCP Family Medicine
DX: R42 Dizziness and giddiness (principal); R53.1 Weakness; R11.0 Nausea; R26.2 Difficulty in walking, not elsewhere classified
CPT/HCPCS: 36591; 70450; 71046; 72170; 80053; 82550; 82553; 84484; 85025; 93005; 96360; 99283; 99285

== ENCOUNTER 2019-05-17 07:45 | Emergency (ER) | payer MEDICARE, SELFPAY ==
[2019-05-17 08:22] VITALS: BP 134/81; PULSE 59; RESP 15; TEMP 36.9; O2SAT 97; BMI 24.3
--- NOTE | 2019-05-17 09:03 | DI.RAD.S_ITS ---
PROCEDURE: XR ACUTE ABDOMEN SERIES INDICATIONS: Abdominal pain TECHNIQUE: One view chest and two views of the abdomen were acquired. COMPARISON: None. FINDINGS: Surgical changes and devices: Prior lumbar spine fusion is seen with fixation hardware in place. Chest: Lungs are clear. Heart size is mildly enlarged. No pleural effusions. No pneumoperitoneum. Abdomen: Bowel gas pattern is nonobstructive. Fecal stasis throughout the colon is seen. No suspicious calcifications. Visualized solid organ contours appear normal. Bones: No suspicious bony lesions. IMPRESSION: 1. Constipation. No gross free air. 2. No acute cardiopulmonary pathology. Dictated by: Samir Saavedra M.D. on 05/17/2019 at 9:43 Approved by: Samir Saavedra M.D. on 05/17/2019 at 9:51
--- NOTE | 2019-05-17 10:08 | ED_ITS ---
HPI - Abdominal Pain General Chief Complaint: Abdominal Pain Stated Complaint: groin pain x2days Time Seen by Provider: 05/17/19 07:48 Source: patient and family Mode of arrival: Wheelchair Limitations: no limitations History of Present Illness HPI narrative: 78-year-old male nonsmoker with BPH, chronic constipation presents with his in the chief complaint episodes of right lower quadrant pain off and on for the past 2-3 days. The pain is quite intense but brief when it comes and lasts a few minutes before resolving. He denies any provocation, palliation or radiation. He is chronically constipated and has not had a bowel movement in few days. He denies any fever chills nor vomiting. He is otherwise well and free of complaint MD complaint: abdominal pain Onset (ago): day(s) Pain Consistency: intermittent Location: RLQ Severity: mild Quality: cramping Radiation: none Migration to: no migration Relieving factors: nothing Exacerbating factors: nothing Associated symptoms: constipation Related Data Home Medications Medication Instructions Recorded Confirmed latanoprost [Xalatan] 1 drp OPHTH HS #0 04/19/11 04/08/18 TIMOLOL 0.25% OPHTH - 1 drp OPHTH BID #0 11/15/11 04/08/18 (#TIMOPTIC 0.25% 10 ML) brimonidine 0.15 % eye drops EYE-BOTH ml 04/08/18 04/08/18 lisinopril 10 mg tablet 10 mg PO DAILY 04/08/18 04/08/18 Previous Rx's Medication Instructions Recorded polyethylene glycol 3350 [Miralax] 17 gm PO QDAYP PRN #14 gm 04/29/17 tamsulosin [Flomax] 0.4 mg PO QDAY #10 cap 04/29/17 Allergies Allergy/AdvReac Type Severity Reaction Status Date / Time No Known Drug Allergies Allergy Verified 05/17/19 08:21 Review of Systems Constitutional Constitutional: Denies chills, Denies fatigue, Denies fever(s), Denies frequent falls, Denies lethargy and Denies weakness Eyes Eyes: Denies change in vision, Denies eye discharge, Denies irritation and Denies loss of vision ENT Ears, Nose, Mouth, and Throat: Denies change in voice, Denies dizziness, Denies neck pain, Denies sore throat and Denies throat swelling Cardiovascular Cardiovascular: Denies chest pain, Denies irregular heart rhythm, Denies lightheadedness, Denies palpitations, Denies dyspnea, Denies dyspnea on exertion and Denies orthopnea Respiratory Respiratory: Denies cough, Denies dyspnea, Denies dyspnea on exertion and Denies wheezing Gastrointestinal Gastrointestinal: Reports abdominal pain, Denies change in bowel habits, Reports constipation, Denies diarrhea, Denies nausea and Denies vomiting Genitourinary Genitourinary: Denies hematuria, Denies flank pain, Denies urinary incontinence and Denies urinary urgency Musculoskeletal Musculoskeletal: Denies back pain, Denies muscle weakness, Denies neck pain, Denies numbness and Denies tingling Integumentary/Breasts Skin/Breast: Denies pruritus, Denies erythema, Denies rash and Denies wounds Neurologic Neurologic: Denies behavioral changes, Denies confusion, Denies dizziness, Denies frequent falls, Denies loss of vision, Denies numbness, Denies tingling and Denies weakness Psychiatric Psychiatric: Denies anxiety, Denies behavioral changes, Denies confusion, Denies depression, Denies homicidal ideation and Denies suicidal ideation Endocrine Endocrine: Denies fatigue, Denies flushing and Denies palpitations Hematologic/Lymphatic Hematologic/Lymphatic: Denies easy bruising Allergic/Immunologic Allergic/Immunologic: Denies urticaria, Denies throat swelling and Denies wheezing [facility] Social History Smoking Status: Never smoker alcohol intake: never Exam Narrative Exam Narrative: GENERAL: [78] year old patient appears stated age. Well- nourished, well-developed patient, in mild distress. HEAD: Atraumatic. Normocephalic. EYES: Pupils equal round and reactive. Extraocular motions intact. No scleral icterus. No injection or drainage. ENT: Nose without bleeding, purulent drainage. Throat without erythema, tonsillar hypertrophy or exudate. Airway patent. NECK: Trachea midline. Non tender CARDIOVASCULAR: Regular rate and rhythm without murmurs, gallops, or rubs. RESPIRATORY: Clear to auscultation. Breath sounds equal bilaterally. No wheezes, rales, or rhonchi. GASTROINTESTINAL: Abdomen soft, non-tender, nondistended. No evidence of inguinal hernia. Decreased bowel sounds EXTREMITIES: No edema or joint tenderness. BACK: Nontender without deformity or crepitance. No flank tenderness. NEURO: AOx3. SKIN: No rash or erythema of visible areas Initial Vital Signs Initial Vital Signs: Vital Signs Temperature 98.4 F 05/17/19 08:22 Pulse Rate 59 L 05/17/19 08:22 Respiratory Rate 15 05/17/19 08:22 Blood Pressure 134/81 05/17/19 08:22 Pulse Oximetry 97 05/17/19 08:22 Course Orders Ordered: ED Orders 05/17/19 09:03 XR acute abdomen series Stat Vital Signs Vital signs: Vital Signs - 8 hr 05/17/19 08:22 Temperature 98.4 F Pulse Rate 59 L Respiratory Rate 15 Blood Pressure 134/81 Pulse Oximetry 97 MDM - Abdominal Pain Imaging Data Abdominal x-ray: Radiologist's impression: [address] [address] XRay Report Signed Patient: Librado Norton JMR#: [id number] : 9Acct:[id number] Age/Sex: 78 / MDate of Service: 05/17/19 Loc: ED Accession Number: [id number] Procedure: XR acute abdomen series Ordering Provider: Wesley Wick D.O. PROCEDURE: XR ACUTE ABDOMEN SERIES INDICATIONS: Abdominal pain TECHNIQUE: One view chest and two views of the abdomen were acquired. COMPARISON: None. FINDINGS: Surgical changes and devices: Prior lumbar spine fusion is seen with fixation hardware in place. Chest: Lungs are clear. Heart size is mildly enlarged. No pleural effusions. No pneumoperitoneum. Abdomen: Bowel gas pattern is nonobstructive. Fecal stasis throughout the colon is seen. No suspicious calcifications. Visualized solid organ contours appear normal. Bones: No suspicious bony lesions. IMPRESSION: 1. Constipation. No gross free air. 2. No acute cardiopulmonary pathology. Dictated by: Samir Saavedra M.D. on 05/17/2019 at 9:43 Approved by: Samir Saavedra M.D. on 05/17/2019 at 9:51 Discharge Plan Departure Patient Disposition: Home Clinical Impression: Abdominal pain Qualifiers: Abdominal location: right lower quadrant Qualified Code(s): R10.31 - Right lower quadrant pain Constipation Qualifiers: Constipation type: unspecified constipation type Qualified Code(s): K59.00 - Constipation, unspecified Discharge Date/Time: 05/17/19 10:37 Instructions: DI for Constipation Activity Restrictions/Additional Instructions: *You have been diagnosed with [ abdominal pain due to constipation ] *What to do: *Take over the counter medications as directed: 1. Magnesium Citrate - brings water into your bowel 2. Colace - softens your stool 3. Dulcolax - stiumlates your bowels *Follow up with your primary care provider in 2-3 days, call for appointment *Return to ER if you should have any new, worsening or concerning symptoms *Drink plenty of water and eat foods high in fiber Prescriptions: No Action brimonidine 0.15 % drops EYE-BOTH RF: 0 lisinopril 10 mg tablet 10 mg PO DAILY RF: 0 latanoprost [Xalatan] 0.005 % drops 1 drp OPHTH HS Qty: 0 RF: 0 TIMOLOL 0.25% OPHTH - (#TIMOPTIC 0.25% 10 ML) 1 drp OPHTH BID Qty: 0 RF: 0 polyethylene glycol 3350 [Miralax] 17 GM powder in packet 17 gm PO QDAYP PRNQty: 14 RF: 0 tamsulosin [Flomax] 0.4 MG capsule,extended release 24hr 0.4 mg PO QDAY Qty: 10 RF: 0
== END 2019-05-17 10:37 | disposition home or self-care (01) ==
PROVIDERS: Emergency Provider Emergency Medicine
DX: R10.31 Right lower quadrant pain (principal); K59.00 Constipation, unspecified
CPT/HCPCS: 74022; 99282; 99283